=== PATIENT | male | born 1995 | race Caucasian/White ===

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

== ENCOUNTER 2017-01-30 16:17 | Emergency (ER) | payer OTHER ==
[2017-01-30 16:18] VITALS: BMI 28.1
[2017-01-30 16:26] VITALS: BP 123/69; PULSE 76; RESP 16; TEMP 98.1; O2SAT 98
--- NOTE | 2017-01-30 16:52 | C.PDOC ---
History Of Present Illness 21 year old male presents to the ED for staple removal. Patient was seen in this ED on 01/12 and had lexi applied to his left scalp area. Patient states the area is healing well and denies fever, chills, discharge or any complications at this time . Time Seen by Provider: 01/30/17 16:26 Chief Complaint (Nursing): Suture/Staple Removal History Per: Patient History/Exam Limitations: no limitations Onset/Duration Of Symptoms: Days Ago (since 01/12) Current Symptoms Are (Timing): Still Present Location Of Injury: Left: Head (scalp ) Quality Of Symptoms: denies: Painful, Itching, Swollen, Draining Additional History Per: Patient Past Medical History Reviewed: Historical Data, Nursing Documentation, Vital Signs Vital Signs: Last Vital Signs Temp 98.1 F 01/30/17 16:25 Pulse 76 01/30/17 16:25 Resp 16 01/30/17 16:25 BP 123/69 01/30/17 16:25 Pulse Ox 98 01/30/17 17:18 - Medical History PMH: No Chronic Diseases Surgical History: No Surg Hx Family History: States: Unknown Family Hx - Social History Hx Tobacco Use: No Hx Alcohol Use: No Hx Substance Use: No Review Of Systems Skin: Positive for: Other (staple removal from left scalp region. no discharge ) Physical Exam - Physical Exam Appears: Non-toxic, No Acute Distress Skin: Normal Color, Warm, Dry Head: Other (healed left occipital scalp laceration with [address] no erythema, drainage, or signs of infection) Neurological/Psych: Oriented x3, Normal Speech, Normal Cognition Gait: Steady ED Course And Treatment O2 Sat by Pulse Oximetry: 98 (on RA) Pulse Ox Interpretation: Normal Medical Decision Making Medical Decision Making: Progress: 8 lexi successfully removed from left occipital scalp. Patient tolerated well with no complications. Patient is resting comfortably, showing no signs of distress and is stable for discharge. Patient is advised to follow up with his PMD within 1-2 days for further evaluation. Disposition Counseled Patient/Family Regarding: Diagnosis, Need For Followup - Disposition Disposition: HOME/ ROUTINE Disposition Time: 16:51 Condition: STABLE Additional Instructions: follow up with your doctor in 2 days call to make an appointment return to ER if symptoms worsens or progress Instructions: Stitches Removal (ED), Staple Care (ED) Forms: [employer] (Amharic), Gen Discharge Inst Yi Print Language: HUNGARIAN - Clinical Impression Clinical Impression: Removal of suture - Scribe Statement The provider has reviewed the documentation as recorded by the Scribe (Kassi Abdullahi) Provider Attestation: All medical record entries made by the Scribe were at my direction and personally dictated by me. I have reviewed the chart and agree that the record accurately reflects my personal performance of the history, physical exam, medical decision making, and the department course for this patient. I have also personally directed, reviewed, and agree with the discharge instructions and disposition.
== END 2017-01-30 17:00 | disposition home or self-care (01) ==
LOC: C.ER 16:17
DX: Z48.02 Encounter for removal of sutures (principal)